=== PATIENT | female | born 1990 ===

== ENCOUNTER → 2019-11-09 | Outpatient (CLI) | payer OTHER ==
[~2019-11-09] MED LIST: Motrin,Rufen800 MG PO; NORCO 5-325 TA1 EACH PO
== END | disposition home or self-care (01) ==
LOC: LAB 13:46
DX: Z30.2 Encounter for sterilization (principal); Z63.79 Other stressful life events affecting family and household

== ENCOUNTER → 2019-11-14 | Day surgery (SDC) | payer OTHER ==
[2019-11-09 13:08] VITALS: BP 120/77
[2019-11-14] VITALS (8 sets, daily range): BP systolic 96–124; BP diastolic 51–72
[~2019-11-14] VITALS: Ht 160 cm; Wt 80.3 kg
== END | disposition home or self-care (01) ==
LOC: SDC 11-09 13:15
DX: Z30.2 Encounter for sterilization (principal); F41.9 Anxiety disorder, unspecified; Z63.8 Other specified problems related to primary support group; Z88.0 Allergy status to penicillin